=== PATIENT | female | born 1955 | race Caucasian/White ===

== ENCOUNTER 2022-02-16 12:49 | Outpatient (REF) | payer MEDICARE, MEDICAID, SELFPAY ==
--- NOTE | ~2022-02-16 | CT_ITS ---
EXAMINATION: CT CHEST SCREENING CLINICAL INFORMATION: Smoking history COMPARISON: Previous chest CT most recent July 2019 TECHNIQUE: Multidetector volumetric CT imaging of the chest is performed without contrast using low dose technique. Additional 2D coronal and sagittal reformatted images and axial 3D maximum intensity projection (MIP) images are generated on the CT workstation. This CT examination was performed using dose optimization techniques as appropriate, variously including the following: *Automated exposure control *Adjustment of mA and/or kV according to patient size (this includes techniques or standardized protocols for targeted exams where dose is matched to indication/reason for exam; i.e. extremities or head) *Use of iterative reconstruction technique DLP: 63 mGy-cm FINDINGS: LUNGS: There is a new irregularly-shaped 1 cm nodular density in the anterior segment of the left upper lobe behind the sternum near the interhemispheric fissure. The 2 mm right upper lobe nodule axial image 103 series 6 is stable. The 2 mm left upper lobe nodule axial image 134 series 6 is stable. A new 3 mm nodular density in the apical posterior segment of the left upper lobe near the fissure axial image 149 series 6. On sagittal and coronal images, this is linear and may represent scarring or atelectasis. MEDIASTINUM: The heart does not appear enlarged. There is no pericardial effusion. There is coronary artery calcification. The ascending thoracic aorta is upper normal in size. There are no enlarged hilar or mediastinal lymph nodes. Visualized thyroid gland is unremarkable. PLEURA: There is no pleural effusion. No pleural mass or thickening. AXILLA: No lymphadenopathy. UPPER ABDOMEN: The gallbladder is been removed. OSSEOUS STRUCTURES: There are degenerative changes of the spine. CT/CT lung screening IMPRESSION: New 1 cm nodule in the anterior segment of the left upper lobe near the interhemispheric fissure. ASSESSMENT: Lung-RADS category 4A: Suspicious RECOMMENDATION: 3 month low-dose CT, PET/CT or tissue sampling should be considered.
== END 2022-02-16 12:50 | disposition home or self-care (01) ==
LOC: HO.CT 12:49
PROVIDERS: Visit Provider Physician Assistant Medical
DX: Z12.2 Encounter for screening for malignant neoplasm of respiratory organs (principal); F17.210 Nicotine dependence, cigarettes, uncomplicated
CPT/HCPCS: 71271

== ENCOUNTER → 2022-03-05 10:28 | Outpatient (BNVA) | payer MEDICARE, OTHER, SELFPAY | PROVIDERS: Visit Provider Surgery | DX: R91.1 Solitary pulmonary nodule (principal); Z87.891 Personal history of nicotine dependence | CPT/HCPCS: 99202 ==

== ENCOUNTER 2022-05-17 10:27 | Outpatient (REF) | payer MEDICARE, MEDICAID, SELFPAY ==
--- NOTE | ~2022-05-17 | CT_ITS ---
EXAMINATION: CT CHEST SCREENING CLINICAL INFORMATION: Former smoker. Quit 3 months ago. 25 pack year history. COMPARISON: Previous chest CT scans most recent January 2022 TECHNIQUE: Multidetector volumetric CT imaging of the chest is performed without contrast using low dose technique. Additional 2D coronal and sagittal reformatted images and axial 3D maximum intensity projection (MIP) images are generated on the CT workstation. This CT examination was performed using dose optimization techniques as appropriate, variously including the following: *Automated exposure control *Adjustment of mA and/or kV according to patient size (this includes techniques or standardized protocols for targeted exams where dose is matched to indication/reason for exam; i.e. extremities or head) *Use of iterative reconstruction technique DLP: 64 mGy-cm FINDINGS: LUNGS: There is a 1 cm nodule in the anterior segment of the right upper lobe near the interhemispheric fissure. There is question of slight interval increase in size in the nodule on sagittal constructed images for example axial image 59 series 8 compared to axial image 58 series 02/02/2022 exam. There is surrounding increased groundglass attenuation and interstitial markings. This appears increased as well on sagittal reconstructed images. Other small nodules are stable. No endobronchial or endotracheal lesion. MEDIASTINUM: Coronary artery calcification. Upper normal-size ascending thoracic aorta. The mediastinum is otherwise normal. No enlarged hilar or mediastinal lymph nodes. PLEURA: There is no pleural effusion. No pleural mass or thickening. AXILLA: No lymphadenopathy. UPPER ABDOMEN: The gallbladder has been removed. OSSEOUS STRUCTURES: There are degenerative changes of the spine. CT/CT lung screen follow up IMPRESSION: Question slight interval increase in size in the anterior segment right upper lobe nodule near the interhemispheric fissure on sagittal reconstructed images. Other small micronodules are stable. Coronary artery calcification. ASSESSMENT: Lung-RADS category 4A: Suspicious RECOMMENDATION: PET/CT scan or tissue sampling recommended.
== END 2022-05-17 10:28 | disposition home or self-care (01) ==
LOC: HO.CT 10:27
PROVIDERS: Visit Provider Surgery
DX: R91.1 Solitary pulmonary nodule (principal)
CPT/HCPCS: 71250

== ENCOUNTER → 2022-05-21 08:41 | Outpatient (BNVA) | payer MEDICARE, MEDICAID, SELFPAY | PROVIDERS: Visit Provider Surgery | DX: R91.1 Solitary pulmonary nodule (principal); Z87.891 Personal history of nicotine dependence | CPT/HCPCS: Q3014 ==

== ENCOUNTER 2022-05-27 10:41 | Outpatient (REF) | payer MEDICARE, MEDICAID, SELFPAY ==
--- NOTE | 2022-05-27 11:57 | PFT_ITS ---
FVC 104%, FEV1 105%, FEV1/FVC ratio is 77. MSK03-09 111%, MVV 122%. Post bronchodilator therapy, there is slight improvement in AXY52-65. Total lung capacity 115%. Residual volume 113%. Diffusion capacity 84% CONCLUSION: Normal pulmonary function test, and there is no evidence of obstructive or restrictive pulmonary disorder. MD CLEMENTE Duval/QUYNH / [id number]
== END 2022-05-27 10:42 | disposition home or self-care (01) ==
LOC: HO.RESP 10:41
PROVIDERS: Visit Provider Surgery
DX: R91.1 Solitary pulmonary nodule (principal)
CPT/HCPCS: 94060; 94727; 94729

== ENCOUNTER 2022-08-16 15:09 | Outpatient (REF) | payer MEDICARE, MEDICAID, SELFPAY ==
--- NOTE | ~2022-08-16 | CT_ITS ---
EXAMINATION: CT CHEST WITHOUT CONTRAST CLINICAL INFORMATION: Pulmonary nodule. COMPARISON: 05/17/2022 TECHNIQUE: Multidetector volumetric CT imaging of the chest was done. Axial MIP volume rendering provided. Sagittal and coronal reformatted images were obtained. This CT examination was performed using dose optimization techniques as appropriate, variously including the following: *Automated exposure control *Adjustment of mA and/or kV according to patient size (this includes techniques or standardized protocols for targeted exams where dose is matched to indication/reason for exam; i.e. extremities or head) *Use of iterative reconstruction technique DLP: 194 mGy-cm FINDINGS: LUNGS: Since the previous study, patient is status post partial resection of right upper lobe nodule. There is some post surgical cyst change seen about the suture line. There are mild changes of centrilobular emphysema bilaterally. Central airways are patent. No significant bronchial wall thickening is seen. No bronchiectasis. There is a small focus of ground-glass opacity about the medial aspect of the right lower lobe likely related to atelectasis. No region of abnormal confluent parenchymal disease. There are a few sub-4 mm densities present. There is a 4 mm nodular density seen within the right upper lobe which is not calcified. This is on image 106 of 675. This appears to have been present on prior examination of 08/06/2019. There is a 4 mm noncalcified subpleural nodule seen within the left upper lobe on image [address] series #7. This was present on prior examination of 08/06/2019. MEDIASTINUM: Heart normal size. Prominent coronary artery calcifications are present. No pericardial effusion. There is prominence of the ascending thoracic aorta to approximately 4.1 cm in diameter. There is nonocclusive aortic arch calcified plaque present. No mediastinal or hilar lymphadenopathy. CORONARY ARTERY CALCIFICATION: Yes. PLEURA: There is no pleural effusion. No pleural mass or thickening. AXILLA: No lymphadenopathy. UPPER ABDOMEN: There is a 4 mm low-density lesion seen in the dome of the right lobe of the liver likely representing a small cyst. No intrahepatic bile duct dilatation identified. No adrenal gland mass. A right renal low-density lesion is seen within the upper pole likely representing a cyst. OSSEOUS STRUCTURES: No suspicious destructive bony lesions. No vertebral body fracture identified. CT/CT chest wo IV con IMPRESSION: Post surgical change of the right upper lobe. Stable 4 mm nodules as described compared to study of 08/06/2019. Prominent ascending thoracic aorta measuring up to 4.1 cm in diameter. Fleischner guidelines were followed.
== END 2022-08-16 15:10 | disposition home or self-care (01) ==
LOC: HO.CT 15:09
PROVIDERS: Visit Provider Surgery
DX: R91.1 Solitary pulmonary nodule (principal)
CPT/HCPCS: 71250

== ENCOUNTER → 2022-08-20 10:39 | Outpatient (BNVA) | payer MEDICARE, MEDICAID, SELFPAY | PROVIDERS: Visit Provider Surgery | DX: R91.1 Solitary pulmonary nodule (principal); Z87.891 Personal history of nicotine dependence | CPT/HCPCS: Q3014 ==

== ENCOUNTER 2023-08-04 15:02 | Outpatient (REF) | payer MEDICARE, MEDICAID, SELFPAY ==
--- NOTE | ~2023-08-04 | CT_ITS ---
EXAMINATION: CT CHEST LOW-DOSE SCREENING WITHOUT CONTRAST HISTORY: Asymptomatic patient meeting criteria for lung screening. PATIENT PACK-YEAR HISTORY: 30 Current Smoker: No If former smoker, years since quittin COMPARISON: 08/16/2022 and 05/17/2022 TECHNIQUE: Multidetector volumetric non-contrast CT imaging of the chest was performed using low dose screening CT technique. Axial thin section 0.625 mm reformations in soft tissue and lung windows were obtained. Sagittal and coronal reformations were obtained. Axial MIP images were also created and reviewed. RECONSTRUCTED WIDTH: 1.25 mm x 1.25 mm TOTAL EXAM DLP: 65 mGy-cm CTDIvol: 1.52 mGy FINDINGS: LUNGS: Mild centrilobular emphysema. Postsurgical changes in the right apex. No suspicious pulmonary nodule. No focal consolidation. Central airways are patent. PLEURA: No pleural effusion. LYMPH NODES: No bulky mediastinal, hilar or axillary lymphadenopathy. MEDIASTINUM: Great vessels are of normal caliber. Heart size is normal. No pericardial effusion. CORONARY ARTERY CALCIFICATIONS: Moderate. CHEST WALL/BREASTS: No acute abnormality. UPPER ABDOMEN: This study was performed without contrast and with lower than standard dose, reducing the sensitivity for detection of small lesions in the upper abdomen. Status post cholecystectomy. OSSEOUS STRUCTURES: No destructive bone lesions. CT/CT lung screening IMPRESSION: No suspicious pulmonary nodule. LUNG-RADS CATEGORY ASSESSMENT: 1. Negative. No nodules or definitely benign nodules. Continue annual screening with low-dose CT in 12 months. Probability of malignancy less than 1%. INCIDENTAL FINDINGS (S CATEGORY): Finding: No incidental findings. Significance category: Normal or normal variant. RECOMMENDATION: Low dose lung CT. overall in 1 year. Visual estimate of coronary calcified plaque burden: Moderate. However, this exam cannot replace a dedicated cardiac CT calcium score for accurate assessment. LUNG-RADS CATEGORY: 1 -- NEGATIVE
== END 2023-08-04 15:03 | disposition home or self-care (01) ==
LOC: HO.CT 15:02
PROVIDERS: Visit Provider Surgery
DX: Z12.2 Encounter for screening for malignant neoplasm of respiratory organs (principal); Z87.891 Personal history of nicotine dependence
CPT/HCPCS: 71271

== ENCOUNTER 2024-02-28 14:50 | Outpatient (AMB) | payer MEDICARE, MEDICAID, SELFPAY ==
--- NOTE | 2024-02-28 14:55 | AM.OFFWIN_ITS ---
Intake Vital Signs 02/28/24 14:56 Height 5 ft 8.5 in Weight 177 lb BMI 26.5 BP 164/94 H Blood Pressure Location Lt brachial Position Sitting Pulse 87 Pulse Source Pulse Oximeter Pulse Oximetry (%) 98 Oxygen Delivery Method Room Air Intake Visit Reasons: EP BP high no medication (lobby) Intake Note: pt is here for bp concern due to no bp medications Patient Tobacco Use Status: Former Tobacco user Quit Date: 09/16/2020 Allergies cortisone Allergy (Unknown, Verified 02/28/24 15:15) arm swelling lisinopril Adverse Reaction (Unknown, Verified 02/28/24 15:15) hyperkalemia Cortisone Allergy (Unknown, Uncoded 02/28/24 15:15) Unknown Medication List - Last Reconciled 02/28/24 by Collins De La Fuente MD amlodipine 5 mg PO DAILY hydrochlorothiazide 25 mg PO DAILY Do you need a note to return to daycare/school/sports/work: No HPI EP BP high no medication (lobby) HPI Details 69-year-old female presents to the [facility] for a sick visit. Patient has not had a PCP for two years. She has history of HTN, thyroid disorder and anxiety. Was taking HCTZ, statin, thyroid medication and Paxil. Complains of headaches. Has not had her medications for a few months. [facility] Medical History Hyperlipidemia Hypertension Hypothyroidism Surgical History History of section History of cholecystectomy Social History Patient Tobacco Use Status: Former Tobacco user Quit Date: 09/16/2020 Years Smoked: (onset 32yo, 1-2ppd x 33yrs, 45PYH, quit 09/16/2020) Physical Exam Vital Signs: Last Vital Signs Pulse 87 02/28/24 14:56 BP 164/94 H 02/28/24 14:56 Pulse Ox 98 02/28/24 14:56 Oxygen Delivery Method Room Air 02/28/24 14:56 BMI result Body Mass Index 26.5 Const General: cooperative and healthy appearing Nutritional Appearance: well nourished Orientation/consciousness: patient oriented x3 Limitations: no limitations HEENT Head: Yes normal to inspection Eyes General: appearance normal, both eyes and all related structures Neck Neck: Yes normal visual inspection Chest Chest palpation & inspection: normal palpation of entire chest wall Resp Effort & Inspection: normal respiratory effort Neuro General: patient oriented x3 Office Procedures EKG Details: NSR [id number], Complete Assessment & Plan Assessment & Plan (1) Essential hypertension: Code(s): I10 - Essential (primary) hypertension Plan: BW has been ordered. EKG revd. Amlodipine and HCTZ ordered. I offered pateint to be her PCP. Informed my office to schedule an appt as soon as possible. Orders: Orders Basic Metabolic Panel Today I10 - Essential (primary) hypertension Complete Blood Count no Diff Today I10 - Essential (primary) hypertension Lipid Panel Today I10 - Essential (primary) hypertension Liver Panel Today I10 - Essential (primary) hypertension UA and rflx microscopic Today I10 - Essential (primary) hypertension Thyroid Stimulating Hormone Today I10 - Essential (primary) hypertension AMB EKG-In Office Today I10 - Essential (primary) hypertension Medications: New amlodipine 5 mg PO DAILY 30 tabs 1RF hydrochlorothiazide 25 mg PO DAILY 90 tabs 1RF Coding Level of Care Code Est Pt Level 4 (37619) Diagnoses Essential hypertension I10 CPT Codes EKG - CPT: 47586-[id number], Complete ([id number])
[2024-02-28 14:56] VITALS: BP 164/94; PULSE 87; O2SAT 98; BMI 26.5
== END 2024-02-28 15:39 | disposition home or self-care (01) ==
PROVIDERS: PCP Internal Medicine; Visit Provider Internal Medicine
DX: I10 Essential (primary) hypertension (principal)
CPT/HCPCS: 93000; 99214

== ENCOUNTER 2024-02-29 09:43 | Outpatient (REF) | payer MEDICARE, MEDICAID, SELFPAY ==
[2024-02-29 13:39] LABS: Hematocrit 43.5 % (37.0-47.0); Hemoglobin 15.1 g/dl (12.0-16.0); Mean Corpuscular HGB Conc 34.7 g/dl (31.0-35.0); Mean Corpuscular Hemoglobin 31.5 pg (27.0-33.0); Mean Corpuscular Volume 90.6 fL (80.0-98.0); Mean Platelet Volume 10.5 fL (9.4-12.3); Platelet Count 251 X10*3/uL (160-400); Red Cell Distribution Width 12.6 % (11.0-16.0); White Blood Count 6.1 X10*3/uL (4.8-10.8)
[2024-02-29 13:52] LABS: Appearance Urine Cloudy; Color Urine Dark Yellow; Glucose Urine UA Negative (Negative); Leukocyte Esterase Urine Trace (Negative); Nitrite Urine Negative (Negative); PH 6.5 (5.0-9.0); UMIC TRIGGER UA YES; Urine Blood Moderate (2+) (Negative); Urine Ketones Negative (Negative); Urine Protein Negative (Neg-Trace)
[2024-02-29 13:58] LABS: Bacteria Urine None Seen (None Seen); Hyaline Casts Urine 0-2 /LPF (0-2); RBC Urine >20 /HPF (0-2); Squamous Epithelial Cell Urine >20 /HPF (0-2); WBC Urine 0-5 /HPF (0-5)
[2024-02-29 14:25] LABS: Alanine Aminotransferase 16 U/L (0-31); Albumin Level 4.2 g/dL (3.5-5.0); Alkaline Phosphatase 71 U/L (39-117); Anion Gap 13 (12-20); Aspartate Amino Transferase 21 U/L (5-31); Bilirubin Direct 0.5 mg/dL (0.0-0.5); Bilirubin Total 1.4 mg/dL (0.0-1.0); Blood Urea Nitrogen 21 mg/dL (9-16); Calcium 9.4 mg/dL (8.4-10.2); Carbon Dioxide 25 mmol/L (22-29); Chloride 106 mmol/L (96-108); Cholesterol 136 mg/dL (<200); Estimated Glomerular Filt Rate > 60; Glucose Random 109 mg/dL (60-115); HDL Cholesterol 34 mg/dL (>40); LDL Cholesterol Calculated 76 mg/dL (<100); Potassium 4.1 mmol/L (3.3-5.1); Sodium 140 mmol/L (135-145); Total Protein 7.2 g/dL (6.5-8.0); Triglycerides 133 mg/dL (<150)
== END 2024-02-29 09:44 | disposition home or self-care (01) ==
LOC: HO.HMGCLDS 09:43
PROVIDERS: Visit Provider Internal Medicine
DX: I10 Essential (primary) hypertension (principal)
CPT/HCPCS: 36415; 80048; 80061; 80076; 81001; 84443; 85027

== ENCOUNTER 2024-03-27 09:30 | Outpatient (AMB) | payer MEDICARE, MEDICAID, SELFPAY ==
--- NOTE | 2024-03-27 09:48 | MHC.PC.OV ---
Vital Signs 03/27/24 10:00 Height 5 ft 7 in Weight 183 lb 2 oz BMI 28.7 BP 138/78 Blood Pressure Location Lt brachial Position Sitting Pulse 71 Pulse Source Pulse Oximeter Pulse Oximetry (%) 98 Oxygen Delivery Method Room Air Intake Visit Reasons: QUALITY WORKER visit Intake Note: Patient is a new patient here to establish care for Peripheral neuropathy, HTN, Depression, Anxiety, High Cholesterol, Thyroid issues. Transferring care from [facility]. Medical records have been requested and have received. Security Rep Required: No Feed Elevator Worker: Not Required per policy Accompanied by: Self / Same As Patient Allergies cortisone Allergy (Unknown, Verified 03/27/24 11:02) arm swelling lisinopril Adverse Reaction (Unknown, Verified 03/27/24 11:02) hyperkalemia Cortisone Allergy (Unknown, Uncoded 03/27/24 11:02) Unknown Medication List - Last Reconciled 03/27/24 by Collins De La Fuente MD amlodipine 5 mg PO DAILY hydrochlorothiazide 25 mg PO DAILY Tobacco use date assessed: 03/27/24 Fall risk assessment: No Falls in past year Last assessed Fall Risk: 03/27/24 Dental Screening Dental Screen Date: 03/27/24 Did you have a dental visit in the last 12 months?: No Did you have a dental problem in the last 6 months where you did not have access to dental care?: No Was dental information given to patient?: No HPI QUALITY WORKER visit HPI Details 69-year-old female presents to the office requesting to establish her primary care here. I had seen her in the walk-in, patient was requesting a refill on her prescriptions. Patient gives history of hypertension, elevated cholesterol, thyroid dysfunction and general anxiety disorder. Patient would like to restart on her Paxil. She recently has had 2 deaths in the family, she constantly ruminates about it. She has been taking Paxil for 20 years. She stopped taking it when she was changing providers. [facility] Medical History (Updated 03/27/24 @ 11:04 by Collins De La Fuente MD) Generalized anxiety disorder Hyperlipidemia Hypertension Hypothyroidism Personal history of nicotine dependence Surgical History History of cholecystectomy History of section Family History Other Mental health disorder Substance use disorder Social History Housing: House Alcohol intake: former Patient Tobacco Use Status: Former Tobacco user Quit Date: 09/16/2020 Years Smoked: (onset 32yo, 1-2ppd x 33yrs, 45PYH, quit 09/16/2020) e-Cigarette/Vaping Use: Never Used Second Hand Smoke Exposure: Yes service: No Current occupational status: retired Cognitive needs: No Hearing needs: No Vision needs: Yes (Glasses) Questionnaire PHQ-9 Over the last 2 weeks, how often have you been bothered by any of the following problems? 1. Little interest or pleasure in doing things: nearly every day 2. Feeling down, depressed, or hopeless: nearly every day 3. Trouble falling or staying asleep, or sleeping too much: more than half the days 4. Feeling tired or having little energy: more than half the days 5. Poor appetite or overeating: not at all 6. Feeling bad about yourself - or that you are a failure or have let yourself or your family down: several days 7. Trouble concentrating on things, such as reading the newspaper or watching television: more than half the days 8. Moving or speaking so slowly that other people could have noticed. Or the opposite - being so fidgety or restless that you have been moving around a lot more than usual: not at all 9. Thoughts that you would be better off or of hurting yourself in some way: not at all Total score: 13 Depression Screening Interpretation: Positive Depression Screening Follow-up: Existing condition and New Medication prescribed Depression Screening Done: Yes Source: Developed by Drs. George Jaimes, Sol De La Paz, Williams Garrison and colleagues, with an educational mckayla from [employer]. Thrive Questionnaire Date Thrive assessed: 03/27/24 I am a: Patient What is your living situation today?: I have a steady place to live Within the past 12 months, did the food you bought not last and you didn't have the money to get more?: Never true Within the past 12 months, did you worry whether your food would run out before you got money to buy more?: Never true Do you have trouble paying for medicines?: No Do you have trouble getting transportation to medical appointments?: No Do you have trouble paying your heating and electricity bill?: Yes Do you have trouble taking care of your child, family member or friend?: No Do you have trouble with day-to-day activities such as bathing, preparing meals, shopping, managing finances, etc.?: No Are you currently unemployed and looking for a job?: No Are you interested in more education?: No Currently or been in a relationship where the following occur: no concerns reported THRIVE Score: 1 AUDIT C Alcohol Use Questionnaire (AUDIT-C) 1. How often do you have a drink containing alcohol?: Never Total Score: 0 NNAMDI-7 AMB Questionnaire NNAMDI-7 Date NNAMDI - 7 assessed: 03/27/24 Feeling nervous, anxious, or on edge: 3 = Nearly every day Not being able to stop or control worryin = Nearly every day Worrying too much about different things: 3 = Nearly every day Trouble relaxin = Nearly every day Being so restless that it is hard to sit still: 1 = Several days Becoming easily annoyed or irritable: 1 = Several days Feeling afraid as if something awful might happen: 3 = Nearly every day Total NNAMDI-7 score (0-4 normal; 5-9 mild; 10-14 moderate; 15-21 severe): 17 Source: Developed by Drs. George Jaimes, Sol De La Paz, Williams Garrison and colleagues, with an educational mckayla from [employer]. Physical exam (Primary Care) Vital Signs: Last Vital Signs Pulse 71 03/27/24 10:00 BP 138/78 03/27/24 10:00 Pulse Ox 98 03/27/24 10:00 Oxygen Delivery Method Room Air 03/27/24 10:00 Care Plan Goal for BP management: Blood pressure is stable. Continue current medications. BMI result Body Mass Index 28.7 Tobacco/Smoking Status: Tobacco use Status Tobacco use date assessed 03/27/24 03/27/24 10:12 Patient Tobacco Use Status Former Tobacco user 03/27/24 10:08 e-Cigarette/Vaping Use Never Used 03/27/24 10:12 PHQ-9: PHQ-9 Score PHQ-9: Total score 13 04/30/24 10:12 Depression Screening Interpretation: Positive Depression Screening Follow-up: Existing condition and New Medication prescribed Thrive Assessment: Date of Thrive Assessment Date Thrive assessed 03/27/24 03/27/24 10:12 Currently or been in a relationship where the following occur: no concerns reported Const General: cooperative and healthy appearing Nutritional Appearance: well nourished Orientation/consciousness: patient oriented x3 Limitations: no limitations HENMT Head: Yes normal to inspection Eyes General: appearance normal, both eyes and all related structures Neck Neck: Yes normal visual inspection Chest Chest palpation & inspection: normal palpation of entire chest wall Resp Effort & Inspection: normal respiratory effort Neuro General: patient oriented x3 Assessment and Plan Assessment & Plan (1) Generalized anxiety disorder: Code(s): F41.1 - Generalized anxiety disorder Plan: Axial has been added to the regimen. (2) Hyperlipidemia: Code(s): E78.5 - Hyperlipidemia, unspecified Plan: Blood work has been reviewed. Patient prefers not to take statins. (3) Hypertension: Code(s): I10 - Essential (primary) hypertension Plan: Blood pressure is in range. Continue current medications. (4) Hypothyroidism: Code(s): E03.9 - Hypothyroidism, unspecified Plan: Synthroid at 25 mg has been started. Coding Level of Care Code Est Pt Level 4 (93249) Diagnoses Generalized anxiety disorder F41.1 Hyperlipidemia E78.5 Hypertension I10 Hypothyroidism E03.9
[2024-03-27 10:00] VITALS: BP 138/78; PULSE 71; O2SAT 98; BMI 28.7
== END 2024-03-27 11:28 | disposition home or self-care (01) ==
PROVIDERS: PCP Internal Medicine; Visit Provider Internal Medicine
DX: F41.1 Generalized anxiety disorder (principal); E78.5 Hyperlipidemia, unspecified; I10 Essential (primary) hypertension; E03.9 Hypothyroidism, unspecified
CPT/HCPCS: 99214

== ENCOUNTER 2024-05-01 13:49 | Outpatient (REF) | payer MEDICARE, MEDICAID, SELFPAY ==
--- NOTE | ~2024-05-01 | MM_ITS ---
EXAMINATION: MM SCREENING DIGITAL BREAST TOMOSYNTHESIS, BILATERAL CLINICAL INFORMATION: Screening. Asymptomatic. COMPARISON: Mammography: This is a baseline study. TECHNIQUE: Digital breast tomosynthesis is performed in both the craniocaudal and mediolateral oblique views along with computer-aided detection (CAD). Synthesized 2D images are generated from the tomosynthesis. FINDINGS: The breasts are almost entirely fatty (ACR BI-RADS breast composition Category a). There are no significant masses, abnormal calcifications, or other abnormalities. MM/MM tomosynthesis screening BI IMPRESSION: No mammographic evidence of malignancy. ASSESSMENT: BI-RADS BI-RADS 1 - Negative RECOMMENDATION: Routine annual mammography screening. 1 year F/U This examination should not preclude the clinical evaluation of a suspicious palpable abnormality. This patient's information was entered into a reminder system with a target due date for their next mammogram.
== END 2024-05-01 13:50 | disposition home or self-care (01) ==
LOC: HO.MAMMO 13:49
PROVIDERS: PCP Internal Medicine; Visit Provider Internal Medicine
DX: Z12.31 Encounter for screening mammogram for malignant neoplasm of breast (principal)
CPT/HCPCS: 77063; 77067

== ENCOUNTER → 2024-05-01 14:00 | Outpatient (BNV) | payer MEDICARE, MEDICAID, SELFPAY | PROVIDERS: PCP Internal Medicine; Visit Provider Radiology Diagnostic Radiology | DX: Z12.31 Encounter for screening mammogram for malignant neoplasm of breast (principal) | CPT/HCPCS: 77063; 77067 ==

== ENCOUNTER 2024-09-20 16:26 | Outpatient (REF) | payer MEDICARE, MEDICAID, SELFPAY ==
--- NOTE | ~2024-09-20 | CT_ITS ---
EXAMINATION: CT LOW-DOSE SCREENING CHEST WITHOUT CONTRAST CLINICAL INFORMATION: Personal history of nicotine dependence. Former smoker. The patient has a 33 pack-year history of smoking, having quit 4 years ago. COMPARISON: CT chest August 04, 2023. TECHNIQUE: Multidetector volumetric CT imaging of the chest is performed on a Siemens SOMATOM Definition scanner without contrast using low dose technique. Additional 2D coronal and sagittal reformatted images and axial 3D maximum intensity projection (MIP) images are generated on the CT workstation. This CT examination was performed using dose optimization techniques as appropriate, variously including the following: *Automated exposure control *Adjustment of mA and/or kV according to patient size (this includes techniques or standardized protocols for targeted exams where dose is matched to indication/reason for exam; i.e. extremities or head) *Use of iterative reconstruction technique TOTAL EXAM DLP: 54 mGy-cm. CTDIvol: 1.53 mGy. FINDINGS: PULMONARY NODULES: A few tiny pulmonary micronodules seen none larger than 2 mm (see saved stuart images). LUNGS: Lungs bilaterally symmetrically expanded. There is mild emphysema and bronchial thickening without bronchiectasis. No effusion or pneumothorax. Central airways patent. MEDIASTINUM: No mediastinal, hilar or axillary adenopathy or free fluid collection. CORONARY ARTERY CALCIFICATION: Moderate. THYROID GLAND: Unremarkable to the extent seen. CARDIOVASCULAR STRUCTURES: Aortic and heart size normal. No pericardial effusion. CHEST WALL/AXILLA: Unremarkable. UPPER ABDOMEN: Included portions of the solid organs in the upper abdomen unremarkable on noncontrast imaging. Status post cholecystectomy. OSSEOUS STRUCTURES: No suspicious focal findings. CT/CT lung screening IMPRESSION: 1. No evidence of pulmonary malignancy. 2. Mild emphysema and bronchial thickening. ASSESSMENT: 1. Lung-RADS Category 2: Benign appearance or behavior of nodules. N/A 2. Lung-RADS Category S: Negative. There are no clinically significant or potentially clinically significant findings not related to the lungs requiring urgent additional evaluation. RECOMMENDATION: Continued routine annual low-dose CT lung screening in 1 year is recommended. An order for CT CHEST LOW DOSE CANCER SCREENING ([id number]) can be placed. Electronically signed by: Chris Osorio MD 11/09/2024 04:58 PM [facility] [place]
== END 2024-09-20 16:27 | disposition home or self-care (01) ==
LOC: HO.CT 16:26
PROVIDERS: PCP Internal Medicine; Visit Provider Physician Assistant Medical
DX: Z12.2 Encounter for screening for malignant neoplasm of respiratory organs (principal); Z87.891 Personal history of nicotine dependence
CPT/HCPCS: 71271

== ENCOUNTER 2025-03-28 10:30 | Outpatient (AMB) | payer MEDICARE, MEDICAID, SELFPAY ==
[2025-03-28 10:39] VITALS: BP 120/78; PULSE 70; RESP 20; TEMP 36; O2SAT 98; BMI 28.5
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
--- OUTSIDE RECORDS SUMMARY | 2025-03-28 12:01 | XMS_ITS | Clinical Summary ---
Author Organization [facility] Address [address] [place] [address] Care Team Providers Care Carpenter Assistant Installer Name Role Phone Unavailable Primary Care Provider Unavailabl e Source Comments PLEASE NOTE, if this patient is a minor, it may be UNLAWFUL to discuss sensitive information that is contained in these records (such as FAMILY PLANNING, MENTAL HEALTH or SUBSTANCE ABUSE) with the minor patient's parent or other person without the patient's specific authorization.[facility] Allergies Active Allergy Reactions Criticality Noted Date Comments Cortisone Swelling 11/27/2018 Medications nicotine, polacrilex, (COMMIT) 2 mg lozengeIndications :Smoker Place 1 Lozenge inside cheek as needed for smoking cessation 72 Lozenge 3 03/19/20 19 Active ondansetron HCL (ZOFRAN) 4 mg tabletIndications: Gastroenteritis Take 1 Tab by mouth every 8 (eight) hours as needed for nausea 12 Tab 02/18/20 20 Active simethicone (GAS RELIEF, SIMETHICONE,) 80 mg chewable tabletIndications: Gas pain Place 1 Tab into mouth, chew and swallow every 6 (six) hours as needed for flatulence 30 Tab 02/18/20 20 Active nicotine (NICODERM CQ) 14 mg/24 hr patchIndications:S moker Place 1 Patch onto the skin once daily (every 24 hours) 28 Patch 5 02/18/20 20 Active hydrOXYzine HCL (ATARAX) 25 mg tablet Take 1 Tab by mouth 3 (three) times daily as needed for anxiety 90 Tab 1 07/18/20 20 Active miscellaneous medical supply miscIndications:OS A (obstructive sleep apnea) by miscellaneous route once daily Order CPAP facial mask. Daily. Dx:G47.33. Need: Lifetime. 1 Each 10/03/20 20 Active PARoxetine (PAXIL) 20 mg tabletIndications: Anxiety and depression TAKE 1 TABLET BY MOUTH EVERY DAY 90 Tablet 06/24/20 Active hydroCHLOROthiazid e (HYDRODIURIL) 25 mg tabletIndications: Hypertension, unspecified type TAKE 1 TABLET BY MOUTH EVERY DAY 90 Tablet 1 10/19/20 23 Active levothyroxine (SYNTHROID, LEVOXYL) 125 mcg tabletIndications: Acquired hypothyroidism TAKE 1 TABLET BY MOUTH EVERY DAY IN THE MORNING 90 Tablet 11/02/20 23 Active atorvastatin (LIPITOR) 20 mg tabletIndications: Hyperlipidemia, unspecified hyperlipidemia type Take 1 Tablet by mouth once daily 90 Tablet 11/02/20 Active Active Problems Problem Noted Date Diagnosed Date Hypertension 07/18/2020 FAIZA (obstructive sleep apnea): on CPAP 0 Acquired hypothyroidism 03/19/2019 Overview (03/19/2019): Hypothyroid after menopause. History of hepatitis B 03/19/2019 Overview (03/19/2019): Chronic, treated with Interferon 25 years ago. Smoker 03/19/2019 Overview (03/23/2019): CT- 2mm mass in RUL of lung. Repeat CT in 1 year (CT done in 07/2018) Immunizations Immunization Administration Dates Next Due PNEUMOCOCCAL POLYSACCHARIDE PPV23 06/19/2014 TDAP 06/05/2014 Zoster, Live Vaccine (Zostavax) 07/25/2015 Family History Medical History Relation Name Comments Cancer Father renal Stroke Mother premarin, smoke r Cancer Sister stomach Relation Name Status Comments Father Mother Sister Social History Tobacco Use Types Packs/Day Years Used Date Smoking Tobacco: Every Day Cigarettes Smokeless Tobacco: Never Tobacco Cessation:Ready to Q uit: Yes; Counseling Given: Yes Alcohol Use Standard Drinks/Week Comments No 0 (1 standard drink = 0.6 oz pur e alcohol) Social Connections Answer Date Recorded Social Connections and Isolation 0 07/18/2019 Financial Resource Strain Answer Date R ecorded Financial Resource Strain 0 2018 Stress Answer Date Recorded Stress 0 07/18/2019 Physical Activity Answer Date Recorded Physical Activity 0 07/18/2019 Food Insecurity Answer Date Recorded Food 0 07/18/2019 Transportation Needs Answer Date Record ed Transportation 0 07/18/2019 Housing Stability Answer Date Recorded Housing 0 07/18/2019 Safety and Environment Answer Date Don rded Safety 0 07/18/2019 Utilities Answer Date Recorded Utilities 0 07/18/2019 Employment Answer Date Recorded Employment 0 07/18/2019 Comments No Sex and Gender Information Value Date Recorded Sex Assigned at Female 11/27/2018 11:49 AM PST Legal Sex Female 12:11 PM PST Gender Identity Female 11/27/2018 11:49 AM PST Sexual Orientation Straight 11/27/2018 11 :49 AM PST Last Filed Vital Signs Vital Sign Reading Time Taken Comments Blood Pressure 132/82 07/10/2019 10:14 AM EDT Pulse 86 07/10/2019 10:14 AM EDT Temperature 37 ??C (98.6 ??F) 07/10/2019 10:14 AM EDT Respiratory Rate 20 07/10/2019 10:14 AM EDT Oxygen Saturation - - Inhaled Oxygen Concentration - - Weight 98.9 kg (218 lb) 07/10/2019 10:14 AM EDT Height 172 cm (5' 7.72 ) 07/10/2019 10:14 AM EDT Body Mass Index 33.42 07/10/2019 10:14 AM EDT Plan of Treatment Not on file Insurance [place]ARE - [place] [employer] [place] [place]
--- OUTSIDE RECORDS SUMMARY | 2025-03-28 12:01 | XMS_ITS | Clinical Summary ---
Author Organization [facility] Address [address] [place] [address] Care Team Providers Care Gym Attendant Name Role Phone Unavailable Primary Care Provider Unavailabl e Surgical History Surgery Date Site/Laterality Comments SECTION PROCEDURE: HISTORICAL DELIVERY CHOLECYSTECTOMY N/A PROCEDURE: HISTORICAL CHOLECYSTECTOMY OTHER SURGICAL HISTORY 06/23/2022 Right PROCEDURE: [place] THORACOSCOPY W/THERA WEDGE RESEXN INITIAL UNILAT; COMMENT: RUL Family History Medical History Relation Name Comments Depression Father Other cancer Father Hypertension Maternal Grandmother Depression Mother Other: Other Mother Diabetes Paternal Grandmother Other cancer Sister Relation Name Status Comments Father Maternal Grandmother Mother Paternal Grandmother Sister Social History Tobacco Use Types Packs/Day Years Used Date Smoking Tobacco: Former Cigarettes 1 31.8 0 11/28/1988 - 09/06/2020 Smokeless Tobacco: Never Comments Unknown Sex and Gender Information Value Date Recorded Sex Assigned at Not on file Legal Sex Female 7:31 AM EST Gender Identity Not on file Sexual Orientation Not on file Obstetrics History Last Filed Vital Signs Vital Sign Reading Time Taken Comments Blood Pressure 184/98 07/06/2022 2:15 PM EDT Pulse 66 07/06/2022 2:15 PM EDT Temperature - - Respiratory Rate - - Oxygen Saturation - - Inhaled Oxygen Concentration - - Weight 88 kg (194 lb) 07/06/2022 2:15 PM EDT Height 172.7 cm (5' 8 ) 07/06/2022 2:15 PM EDT Body Mass Index 29.5 07/06/2022 2:15 PM EDT Plan of Treatment Health Maintenance Due Date Last Done Comments Breast Cancer Screening 1955 DTaP,Tdap,and Td Vaccines (1 - Tdap) 1974 Pneumococcal Vaccine: 50+ Ye ars (1 of 1 - PCV) 2005 Zoster Vaccines (1 of 2) 2005 Cholesterol Screening (Lipid Panel) 10/31/2022 Colorectal Cancer Screening: Colonoscopy 10/31/2022 Depression Screening 10/31/2022 Falls Risk Assessment 10/31/2022 Hepatitis C Screening 10/31/2022 Lung Cancer Screening (Low Dose CT) 10/31/2022 Osteoporosis Screening (Bone Density Screening) 10/31/2022 Social Influencers of Health Screening 10/31/2022 Hypertension/CHF/CAD Annual BMP Blood Test 11/12/2022 COVID-19 Vaccine (2023-2 5 season) 2024 Influenza Vaccine (Season Ended) 2025 RSV Immunization Adult Patie nts (1 - 1-dose 75+ series) 2030 HIB Vaccines Aged Out No longer eligi ble based on patient's age to complete this topic HPV Vaccines Aged Out No longer eligi ble based on patient's age to complete this topic Hepatitis A Vaccines Aged Out No long er eligible based on patient's age to complete this topic Hepatitis B Vaccines Aged Out No long er eligible based on patient's age to complete this topic IPV Vaccines Aged Out No longer eligi ble based on patient's age to complete this topic MMR Vaccines Aged Out No longer eligi ble based on patient's age to complete this topic Meningococcal ACWY Vaccine Aged Out N o longer eligible based on patient's age to complete this topic Meningococcal B Vaccine Aged Out No l onger eligible based on patient's age to complete this topic RSV Immunization Patients Un anna 20 months Aged Out No longer eligible b ased on patient's age to complete this topic Varicella Vaccines Aged Out No longer eligible based on patient's age to complete this topic
== END 2025-03-28 11:08 | disposition home or self-care (01) ==
LOC: HO.HMCH 10:31
PROVIDERS: PCP Internal Medicine; Visit Provider Internal Medicine
DX: I10 Essential (primary) hypertension (principal); Z00.00 Encounter for general adult medical examination without abnormal findings

== ENCOUNTER → 2025-03-28 10:30 | Outpatient (BNVA) | payer MEDICARE, MEDICAID, SELFPAY | PROVIDERS: PCP Internal Medicine; Visit Provider Internal Medicine | DX: Z00.00 Encounter for general adult medical examination without abnormal findings (principal); I10 Essential (primary) hypertension | CPT/HCPCS: 96127; 99212 ==

== ENCOUNTER 2025-04-01 08:10 | Outpatient (REF) | payer MEDICARE, MEDICAID, SELFPAY ==
--- OUTSIDE RECORDS SUMMARY | 2025-04-01 08:24 | XMS_ITS | Clinical Summary ---
Author Organization [facility] Address [address] [place] [address] Care Team Providers Care Operations Liaison Name Role Phone Unavailable Primary Care Provider Unavailabl e Surgical History Surgery Date Site/Laterality Comments SECTION PROCEDURE: HISTORICAL DELIVERY CHOLECYSTECTOMY N/A PROCEDURE: HISTORICAL CHOLECYSTECTOMY OTHER SURGICAL HISTORY 06/23/2022 Right PROCEDURE: [place] THORACOSCOPY W/THERA WEDGE RESEXN INITIAL UNILAT; COMMENT: [...]
[2025-04-01 10:24] LABS: Hematocrit 44.1 % (37.0-47.0); Hemoglobin 15.1 g/dl (12.0-16.0); Mean Corpuscular HGB Conc 34.2 g/dl (31.0-35.0); Mean Corpuscular Hemoglobin 31.5 pg (27.0-33.0); Mean Corpuscular Volume 92.1 fL (80.0-98.0); Mean Platelet Volume 10.4 fL (9.4-12.3); Platelet Count 285 X10*3/uL (160-400); Red Blood Count 4.79 X10*6/uL (4.20-5.50); Red Cell Distribution Width 12.6 % (11.0-16.0); White Blood Count 6.2 X10*3/uL (4.8-10.8)
[2025-04-01 10:29] LABS: Appearance Urine Cloudy; Color Urine Yellow; Glucose Urine UA Negative (Negative); Leukocyte Esterase Urine Small (1+) (Negative); Nitrite Urine Negative (Negative); Specific Gravity - Urine 1.015 (1.005-1.025); UMIC TRIGGER UA YES; Urine Blood Small (1+) (Negative); Urine Ketones Negative (Negative); Urine Protein Negative (Neg-Trace)
[2025-04-01 10:32] LABS: Bacteria Urine Trace (None Seen); Hyaline Casts Urine 0-2 /LPF (0-2); Squamous Epithelial Cell Urine >20 /HPF (0-2)
[2025-04-01 10:53] LABS: Alanine Aminotransferase 20 U/L (0-31); Albumin Level 4.4 g/dL (3.5-5.0); Alkaline Phosphatase 84 U/L (39-117); Anion Gap 15 (12-20); Aspartate Amino Transferase 25 U/L (5-31); Bilirubin Direct 0.3 mg/dL (0.0-0.5); Bilirubin Total 1.2 mg/dL (0.0-1.0); Blood Urea Nitrogen 18 mg/dL (9-16); Calcium 9.3 mg/dL (8.4-10.2); Carbon Dioxide 25 mmol/L (22-29); Chloride 104 mmol/L (96-108); Cholesterol 226 mg/dL (<200); Estimated Glomerular Filt Rate > 60; Glucose Random 103 mg/dL (60-115); HDL Cholesterol 41 mg/dL (>40); LDL Cholesterol Calculated 155 mg/dL (<100); Potassium 4.2 mmol/L (3.3-5.1); Sodium 140 mmol/L (135-145); Total Protein 7.4 g/dL (6.5-8.0); Triglycerides 152 mg/dL (<150)
[2025-04-01 11:11] LABS: Thyroid Stimulating Hormone 8.73 uIU/mL (0.32-4.0)
== END 2025-04-01 08:11 | disposition home or self-care (01) ==
LOC: HO.HMGCLDS 08:10
PROVIDERS: PCP Internal Medicine; Visit Provider Internal Medicine
DX: I10 Essential (primary) hypertension (principal)
CPT/HCPCS: 36415; 80048; 80061; 80076; 81001; 84443; 85027

== ENCOUNTER → 2025-06-26 12:45 | Outpatient (BNV) | payer MEDICARE, MEDICAID, SELFPAY | PROVIDERS: PCP Internal Medicine; Visit Provider Internal Medicine | DX: Z12.31 Encounter for screening mammogram for malignant neoplasm of breast (principal) | CPT/HCPCS: 77063; 77067 ==

== ENCOUNTER 2025-06-26 12:57 | Outpatient (REF) | payer MEDICARE, MEDICAID, SELFPAY ==
--- OUTSIDE RECORDS SUMMARY | 2025-06-26 13:29 | XMS_ITS | Clinical Summary ---
Author Organization [facility] Address [address] [place] [address] Care Team Providers Care Doctor Of Medicine Name Role Phone Unavailable Primary Care Provider [...] BY MOUTH EVERY DAY 90 Tablet 06/24/20 23 Active hydroCHLOROthiazid e (HYDRODIURIL) 25 mg tabletIndications: [...] by mouth once daily 90 Tablet 11/02/20 23 Active Active Problems Problem Noted Date Diagnosed [...] Administration Dates Next Due PNEUMOCOCCAL POLYSACCHARIDE PPV23 (Pneumovax 23) 06/19/2014 TDAP 06/05/2014 Zoster, Live Vaccine (Zostavax) [...] 86 07/10/2019 10:14 AM EDT Temperature 37 C (98.6 F) 07/10/2019 10:14 AM EDT Respiratory Rate 20 [...]
--- OUTSIDE RECORDS SUMMARY | 2025-06-26 13:29 | XMS_ITS | Clinical Summary ---
Author Organization [facility] Address [address] [place] [address] Care Team Providers Care Eclectic Doctor Name Role Phone Unavailable Primary Care Provider Unavailabl e Surgical History Surgery Date Site/Laterality Comments SECTION PROCEDURE: HISTORICAL DELIVERY CHOLECYSTECTOMY N/A PROCEDURE: HISTORICAL CHOLECYSTECTOMY OTHER SURGICAL HISTORY 06/23/2022 Right PROCEDURE: [place] THORACOSCOPY W/THERA WEDGE RESEXN INITIAL UNILAT; COMMENT: [...] Panel) 10/31/2022 Colorectal Cancer Screening: Colonoscopy 10/31/2022 Falls Risk Assessment 10/31/2022 Hepatitis C Screening 10/31/2022 Lung Cancer Screening (Low Dose CT) 10/31/2022 Osteoporosis Screening (Bone Density Screening) 10/31/2022 Social Influencers of Health Screening 10/31/2022 Hypertension/CHF/CAD Annual BMP Blood Test 11/12/2022 COVID-19 Vaccine ( - 2023-2 5 season) 2024 Depression Screening 11/28/2024 Influenza Vaccine (#1) 2025 RSV Immunization Adult Patie nts (1 [...]
== END 2025-06-26 12:58 | disposition home or self-care (01) ==
LOC: HO.MAMMO 12:57
PROVIDERS: PCP Internal Medicine; Visit Provider Internal Medicine
DX: Z12.31 Encounter for screening mammogram for malignant neoplasm of breast (principal)
CPT/HCPCS: 77063; 77067

== ENCOUNTER 2025-10-03 09:53 | Outpatient (AMB) | payer MEDICARE, MEDICAID, SELFPAY ==
--- NOTE | 2025-10-03 10:09 | A.OFFPC_ITS ---
Vital Signs 10/03/25 10:10 Height 5 ft 7 in Weight 178 lb 4 oz BMI 27.9 BP 124/90 H Blood Pressure Location Lt brachial Position Sitting Pulse 73 Pulse Source Pulse Oximeter Temp 96.4 F L Temp Source Temporal Artery Scan Pulse Oximetry (%) 97 Oxygen Delivery Method Room Air Intake Visit Reasons: 6 month f/u Intake Note: Patient is here to follow up on HTN, HLD, Hypothyroidism. Concrete Batch Plant Operator Required: No Ink Printer: Not Required per policy Accompanied by: Self / Same As Patient Allergies cortisone Allergy (Unknown, Verified 10/03/25 10:10) arm swelling lisinopril Adverse Reaction (Unknown, Verified 10/03/25 10:10) hyperkalemia Cortisone Allergy (Unknown, Uncoded 10/03/25 10:10) Unknown Tobacco use date assessed: 10/03/25 Fall risk assessment: No Falls in past year Last assessed Fall Risk: 10/03/25 Dental Screening Dental Screen Date: 10/03/25 Did you have a dental visit in the last 12 months?: No Did you have a dental problem in the last 6 months where you did not have access to dental care?: No Was dental information given to patient?: No [facility] Medical History (Updated 05/23/25 @ 13:06 by Collins De La Fuente MD) Encounter for colorectal cancer screening using Cologuard test (05/08/25) Generalized anxiety disorder Hyperlipidemia Hypertension Hypothyroidism Personal history of nicotine dependence Surgical History History of cholecystectomy History of section Family History Other Mental health disorder Substance use disorder Social History Housing: House Alcohol intake: former Patient Tobacco Use Status: Former Tobacco user Years Smoked: (onset 32yo, 1-2ppd x 33yrs, 45PYH, quit 09/16/2020) e-Cigarette/Vaping Use: Never Used Second Hand Smoke Exposure: Yes service: No Current occupational status: retired Cognitive needs: No Hearing needs: No Vision needs: Yes (Glasses) Questionnaire PHQ-9 Over the last 2 weeks, how often have you been bothered by any of the following problems? 1. Little interest or pleasure in doing things: several days 2. Feeling down, depressed, or hopeless: not at all 3. Trouble falling or staying asleep, or sleeping too much: nearly every day 4. Feeling tired or having little energy: not at all 5. Poor appetite or overeating: not at all 6. Feeling bad about yourself - or that you are a failure or have let yourself or your family down: not at all 7. Trouble concentrating on things, such as reading the newspaper or watching television: several days 8. Moving or speaking so slowly that other people could have noticed. Or the opposite - being so fidgety or restless that you have been moving around a lot more than usual: not at all 9. Thoughts that you would be better off or of hurting yourself in some way: not at all Total score: 5 Depression Screening Interpretation: Positive Depression Screening Done: Yes Source: Developed by Drs. George Jaimes, Sol De La Paz, Williams Garrison and colleagues, with an educational mckayla from [employer]. Thrive Questionnaire Date Thrive assessed: 03/21/25 I am a: Patient What is your living situation today?: I have a steady place to live Within the past 12 months, did the food you bought not last and you didn't have the money to get more?: Never true Within the past 12 months, did you worry whether your food would run out before you got money to buy more?: Sometimes True Do you have trouble paying for medicines?: No Do you have trouble getting transportation to medical appointments?: No Do you have trouble paying your heating and electricity bill?: No Do you have trouble taking care of your child, family member or friend?: No Do you have trouble with day-to-day activities such as bathing, preparing meals, shopping, managing finances, etc.?: No Are you currently unemployed and looking for a job?: No Are you interested in more education?: No Please select the resources that you would like help with: None Currently or been in a relationship where the following occur: No concerns reported THRIVE Score: 1 AUDIT C Alcohol Use Questionnaire (AUDIT-C) 1. How often do you have a drink containing alcohol?: Never 3. How often do you have six or more drinks on one occasion?: Never Total Score: 0 NNAMDI-7 AMB Questionnaire NNAMDI-7 Date NNAMDI - 7 assessed: 10/03/25 Feeling nervous, anxious, or on edge: 0 = Not at all Not being able to stop or control worryin = Not at all Worrying too much about different things: 0 = Not at all Trouble relaxin = Not at all Being so restless that it is hard to sit still: 0 = Not at all Becoming easily annoyed or irritable: 0 = Not at all Feeling afraid as if something awful might happen: 0 = Not at all Total NNAMDI-7 score (0-4 normal; 5-9 mild; 10-14 moderate; 15-21 severe): 0 Source: Developed by Drs. George Jaimes, Sol De La Paz, Williams Garrison and colleagues, with an educational mckayla from [employer]. Physical exam (Primary Care) Vital Signs: Last Vital Signs Temp 96.4 F L 10/03/25 10:10 Pulse 73 10/03/25 10:10 BP 124/90 H 10/03/25 10:10 Pulse Ox 97 10/03/25 10:10 Oxygen Delivery Method Room Air 10/03/25 10:10 BMI result Body Mass Index 27.9 Tobacco/Smoking Status: Tobacco use Status Tobacco use date assessed 10/03/25 10/03/25 10:14 Patient Tobacco Use Status Former Tobacco user 10/03/25 10:14 e-Cigarette/Vaping Use Never Used 10/03/25 10:14 PHQ-9: PHQ-9 Score PHQ-9: Total score 5 10/03/25 10:14 Depression Screening Interpretation: Positive Thrive Assessment: Date of Thrive Assessment Date Thrive assessed 03/21/25 10/03/25 10:14 Currently or been in a relationship where the following occur: No concerns reported Coding Level of Care Code Est Pt Level 4 (96821) Complex EM visit Add On G2211 Diagnoses Hypertension I10 Floaters in visual field H43.399 Assessment & Plan Assessment & Plan (1) Hypertension: Code(s): I10 - Essential (primary) hypertension Category: Medical Plan: History of Present Illness - The patient is a 70-year-old female presenting with new-onset mild acid reflux and an increased frequency of migraines with visual aura. - The patient reports new, mild acid reflux, which is most prominent upon waking. - She manages this with mandeep tea with lemon and warm water and is trying to reduce her coffee intake. - She has experienced an increase in the frequency of migraines, which manifest as visual disturbances such as floaters and difficulty seeing, without an associated headache. - She has a known history of cataracts diagnosed 12 years ago and reports that her vision has gotten significantly worse, noting her glasses are 10 years old. - Past medical history is significant for hypothyroidism, with an elevated TSH on labs from March of this year, and hyperlipidemia. - Her medications include Paxil, levothyroxine, hydrochlorothiazide, atorvastatin, and amlodipine. - She also uses naproxen occasionally. - Musculoskeletal history includes an asymptomatic lump on the left shoulder and chronic mechanical clicking in the left knee. - A prior knee swelling after a fall on ice has resolved, and she has used Voltaren gel. - The patient has a surgical history of cholecystectomy and reports occasional tight cramping in that region. Social History - Activity and Transportation: The patient rides her bike for transportation but not in cold weather. - She plans to use senior transport for appointments in unfamiliar locations. Review of Systems - Gastrointestinal: Reports new-onset mild acid reflux with some belching, most noticeable in the morning. - Reports occasional tight cramping sensation attributed to prior cholecystectomy. - Musculoskeletal: Reports a persistent lump on the left shoulder but denies pain. - Reports chronic mechanical clicking in the left knee without significant pain. - Neurological/Ophthalmologic: Reports an increased frequency of migraines characterized by visual disturbances, including floaters and obscured vision, but denies associated headaches. - Reports worsening vision. Physical Exam General: Cooperative and healthy appearing Nutritional Appearance: Well nourished Orientation/consciousness: Patient oriented x3 Limitations: No limitations Head: Normal to inspection General: Appearance normal, both eyes and all related structures Neck: Normal visual inspection Chest: Normal palpation of entire chest wall Respiratory: N ormal respiratory effort Neurology: Patient oriented x3, reports intermittent migraines with visual disturbances, more frequent lately. Results - Labs (from March of this year): Results showed an elevated TSH and high cholesterol. Plan - Gastroesophageal Reflux Disease: Continue conservative management with mandeep tea and lemon water, as symptoms are mild and the patient does not wish to start medication. - General Medication Management: Patient advised to take naproxen with food when used. - Hypothyroidism and Hyperlipidemia: Repeat fasting labs, including TSH and a lipid panel, due to abnormal results from March. - The patient will have blood work done at a satellite office. - Migraine with Aura/Vision Changes: Refer to ophthalmology for evaluation of increased frequency of floaters and worsening vision, to rule out conditions such as retinal detachment. - The patient will travel to [place] for the appointment and was advised to use senior transport. - Preventative Care: Administer influenza vaccine in-office today. - Follow-up: Patient to return to the clinic in six months for follow-up. Discussion Notes I discussed the patient's new, mild acid reflux, and we agreed to continue with her current conservative management, as she preferred to avoid medication at this time. We also discussed the increased frequency of her visual disturbances. I explained the importance of an ophthalmology evaluation to rule out serious conditions like a retinal detachment, given her symptoms of floaters. I addressed her concerns about insurance, confirming that a medical visit for these symptoms would be covered by Medicare. We will proceed with a referral. I ordered repeat fasting blood work to re-evaluate her elevated TSH and cholesterol levels from her last labs in March. The plan includes administering the flu shot today and scheduling a follow-up visit in six months. Patient Instructions - Please get your fasting blood work done. - You should not eat before this test. - We will make an appointment for you to see an eye doctor (guest relation officer) to check on your vision problems. - It is best to use the [place] transport service for that appointment, as they may put drops in your eyes that make it unsafe to bike home. - You will get a flu shot today during your visit. - Continue taking your current medicines as prescribed. - If you take naproxen, be sure to take it with food. - For your mild acid reflux, you can continue with your mandeep tea. - Please schedule a follow-up appointment to see me in six months. (2) Floaters in visual field: Code(s): H43.399 - Other vitreous opacities, unspecified eye Plan: Eye appt made Orders: Orders Basic Metabolic Panel Today I10 - Essential (primary) hypertension Complete Blood Count no Diff Today I10 - Essential (primary) hypertension Lipid Panel Today I10 - Essential (primary) hypertension Liver Panel Today I10 - Essential (primary) hypertension Thyroid Stimulating Hormone Today I10 - Essential (primary) hypertension UA and rflx microscopic Today I10 - Essential (primary) hypertension Referrals Ophthalmology Referral H43.399 - Other vitreous opacities, unspecified eye
[2025-10-03 10:10] VITALS: BP 124/90; PULSE 73; TEMP 35.8; O2SAT 97; BMI 27.9
--- OUTSIDE RECORDS SUMMARY | 2025-10-03 11:21 | XMS_ITS | Clinical Summary ---
Author Organization [facility] Address [address] [place] [address] Care Team Providers Care Software Support Specialist Name Role Phone Unavailable Primary Care Provider Unavailabl e Surgical History Surgery Date Site/Laterality Comments SECTION PROCEDURE: HISTORICAL DELIVERY CHOLECYSTECTOMY N/A PROCEDURE: HISTORICAL CHOLECYSTECTOMY OTHER SURGICAL HISTORY 06/23/2022 Right PROCEDURE: [place] THORACOSCOPY W/THERA WEDGE RESEXN INITIAL UNILAT; COMMENT: [...] 2005 Zoster Vaccines (1 of 2) 2005 Depression Screening 11/28/2024 COVID-19 Vaccine (2023-2 5 season) 2025 Influenza Vaccine (#1) 2025 RSV Immunization Adult [...]
== END 2025-10-03 10:34 | disposition home or self-care (01) ==
LOC: HO.HMCH 09:54
PROVIDERS: PCP Internal Medicine; Visit Provider Internal Medicine
DX: I10 Essential (primary) hypertension (principal); H43.399 Other vitreous opacities, unspecified eye

== ENCOUNTER → 2025-10-03 09:53 | Outpatient (BNVA) | payer MEDICARE, MEDICAID, SELFPAY | PROVIDERS: PCP Internal Medicine; Visit Provider Internal Medicine | DX: I10 Essential (primary) hypertension (principal); H43.393 Other vitreous opacities, bilateral | CPT/HCPCS: 99212 ==

== ENCOUNTER 2025-10-10 10:16 | Outpatient (REF) | payer MEDICARE, MEDICAID, SELFPAY ==
--- OUTSIDE RECORDS SUMMARY | 2025-10-10 12:20 | XMS_ITS | Clinical Summary ---
Author Organization [facility] Address [address] [place] [address] Care Team Providers Care Flotation Tank Operator Name Role Phone Unavailable Primary Care Provider Unavailabl e Surgical History Surgery Date Site/Laterality Comments SECTION PROCEDURE: HISTORICAL DELIVERY CHOLECYSTECTOMY N/A PROCEDURE: HISTORICAL CHOLECYSTECTOMY OTHER SURGICAL HISTORY 06/23/2022 Right PROCEDURE: [place] THORACOSCOPY W/THERA WEDGE RESEXN INITIAL UNILAT; COMMENT: [...] 2) 2005 Depression Screening 11/28/2024 COVID-19 Vaccine (2024-2 6 season) 2025 Influenza Vaccine (#1) 2025 RSV [...]
--- OUTSIDE RECORDS SUMMARY | 2025-10-10 12:20 | XMS_ITS | Clinical Summary ---
Author Organization [facility] Address [address] [place] [address] Care Team Providers Care Neuropathologist Name Role Phone Unavailable Primary Care Provider [...]
[2025-10-10 13:23] LABS: Hematocrit 45.2 % (37.0-47.0); Hemoglobin 15.2 g/dl (12.0-16.0); Mean Corpuscular HGB Conc 33.6 g/dl (31.0-35.0); Mean Corpuscular Hemoglobin 31.6 pg (27.0-33.0); Mean Corpuscular Volume 94.0 fL (80.0-98.0); NRBC Abs Auto 0.000 X10*3/uL (0.0-0.012); NRBC Pct Auto 0.0 /100WBC (0.0-0.2); Platelet Count 274 X10*3/uL (160-400); Red Blood Count 4.81 X10*6/uL (4.20-5.50); White Blood Count 5.9 X10*3/uL (4.8-10.8)
[2025-10-10 13:35] LABS: Appearance Urine Turbid; Glucose Urine UA Negative (Negative); PH 8.5 (5.0-9.0); Specific Gravity - Urine 1.015 (1.005-1.025); UMIC TRIGGER UA YES
[2025-10-10 14:23] LABS: Alanine Aminotransferase 20 U/L (0-31); Albumin Level 4.7 g/dL (3.5-5.0); Alkaline Phosphatase 77 U/L (39-117); Anion Gap 15 (12-20); Aspartate Amino Transferase 31 U/L (5-31); Blood Urea Nitrogen 17 mg/dL (9-16); Calcium 9.3 mg/dL (8.4-10.2); Carbon Dioxide 22 mmol/L (22-29); Chloride 107 mmol/L (96-108); Cholesterol 127 mg/dL (<200); Estimated Glomerular Filt Rate > 60; HDL Cholesterol 37 mg/dL (>40); Potassium 4.1 mmol/L (3.3-5.1); Sodium 140 mmol/L (135-145); Total Protein 7.4 g/dL (6.5-8.0); Triglycerides 114 mg/dL (<150)
[2025-10-10 14:42] LABS: Thyroid Stimulating Hormone 6.60 uIU/mL (0.32-4.0)
== END 2025-10-10 10:17 | disposition home or self-care (01) ==
LOC: HO.HMGCLDS 10:16
PROVIDERS: PCP Internal Medicine; Visit Provider Internal Medicine
DX: I10 Essential (primary) hypertension (principal)
CPT/HCPCS: 36415; 80048; 80061; 80076; 81001; 84443; 85027

== ENCOUNTER 2025-10-23 09:52 | Outpatient (REF) | payer MEDICARE, MEDICAID, SELFPAY ==
--- NOTE | ~2025-10-23 | CT_ITS ---
EXAMINATION: CT LUNG SCREENING HISTORY: Z87.891 - Personal history of nicotine dependence TECHNIQUE: Low dose axial images were obtained from the sternal notch to upper abdomen without IV contrast per standard departmental protocol. Sagittal and coronal reformatted images were also obtained and reviewed. One or more of the following techniques was used for dose reduction: Automated exposure control, adjustment of the mA and/or kV according to patient size, use of iterative reconstruction technique. DLP: 55 mGy-cm COMPARISON: Comparison is made with the prior examination dated 09/20/2024. FINDINGS: Lung nodules: There is a 2-3 mm nodule at the right lung apex (series 5, image 24). Scattered 1-2 mm nodules are noted in the left upper lobe (series 5, image 45), and in the left lower lobe (series 5, images 102 and 107). No suspicious pulmonary nodules are identified. Emphysema: none Coronary Calcification: moderate Aortic Arch Calcification: moderate. There is dilatation of the ascending thoracic aorta measuring up to 4.0 cm in diameter. Potentially Significant Incidentals : none Additional Chest Findings: There is no pleural or pericardial effusion. No mediastinal or axillary lymphadenopathy is identified. Visualized upper abdomen: The visualized portions of the liver, spleen, and adrenals have an unremarkable unenhanced appearance. CT/CT lung screening IMPRESSION: No suspicious pulmonary nodules are identified. LUNG-RADS ASSESSMENT: Lung-RADS 2: Benign MANAGEMENT: Continue annual screening with LDCT in 12 months Category S: N/A Electronically signed by: George Chisholm MD 10/23/2025 11:10 AM [facility]
--- OUTSIDE RECORDS SUMMARY | 2025-10-23 11:27 | XMS_ITS | Clinical Summary ---
Author Organization [facility] Address [address] [place] [address] Care Team Providers Care Insole Reinforcer Name Role Phone Unavailable Primary Care Provider Unavailabl e Surgical History Surgery Date Site/Laterality Comments SECTION PROCEDURE: HISTORICAL DELIVERY CHOLECYSTECTOMY N/A PROCEDURE: HISTORICAL CHOLECYSTECTOMY OTHER SURGICAL HISTORY 06/23/2022 Right PROCEDURE: [place] THORACOSCOPY W/THERA WEDGE RESEXN INITIAL UNILAT; COMMENT: [...]
== END 2025-10-23 09:53 | disposition home or self-care (01) ==
LOC: HO.CT 09:52
PROVIDERS: PCP Internal Medicine; Visit Provider Physician Assistant Medical
DX: Z87.891 Personal history of nicotine dependence (principal)
CPT/HCPCS: 71271

== ENCOUNTER → 2025-10-23 09:54 | Outpatient (BNV) | payer MEDICARE, MEDICAID, SELFPAY | PROVIDERS: PCP Internal Medicine; Visit Provider Radiology Diagnostic Radiology | DX: Z87.891 Personal history of nicotine dependence (principal) | CPT/HCPCS: 71271 ==